=== PATIENT | female | born 1985 | race Caucasian/White ===

== ENCOUNTER 2016-02-16 19:16 | Emergency (ER) | payer MEDICAID, OTHER ==
[~2016-02-16] VITALS: Ht 160 cm; Wt 87.0 kg
[2016-02-16 19:20] VITALS: Ht 160 cm; Wt 87.0 kg
[2016-02-16] MEDS ORDERED: ULT50 PO (19:35)
[2016-02-16] MEDS ORDERED: IBUP-1542 PO (19:35)
--- NOTE | 2016-02-16 19:40 | ERD ---
ER Documentation Chief Complaint Date/Time DATE: 02/16/16 TIME: 19:38 Chief Complaint on/off breast pressure x2-3days,no redness/ discharge HPI 30-year-old female presents here in emergency department for complaints of bilateral breast pain for one month now, worsening last 3 days. Patient is currently on her menstrual period. Patient described the pain as throbbing pain , 6/10 scale, not better or worse with anything. Patient did not take any medications to help with symptoms. Patient denies any redness or swelling. Patient denies any deformity. Patient denies any nipple discharge. Patient denies any trauma on affected area. ROS All systems reviewed and are negative except as per history of present illness. Medications Home Meds Active Scripts Tramadol HCl (Tramadol HCl) 50 Mg Tablet, 50 MG PO Q6 Y for PAIN, #20 TAB Prov:MANAV ULLOA PARACHUTE PANEL JOINER 02/16/16 Ibuprofen* (Motrin*) 600 Mg Tab, 600 MG PO Q6H Y for PAIN AND OR ELEVATED TEMP, #30 TAB Prov:MANAV ULLOA [employer]ACHUTE PANEL JOINER 02/16/16 Allergies Allergies: Coded Allergies: No Known Allergy (Verified , 04/30/14) PMhx/Soc History of Surgery: Yes (c section) Anesthesia Reaction: No Hx Neurological Disorder: No Hx Respiratory Disorders: No Hx Cardiac Disorders: No Hx Psychiatric Problems: No Hx Miscellaneous Medical Probl: No Hx Alcohol Use: No (denies) Hx Substance Use: No (denies) Hx Tobacco Use: No (denies) FmHx Family History: No coronary disease, No diabetes, No other Physical Exam Vitals Vital Signs Date Time Temp Pulse Resp B/P Pulse Ox O2 Delivery O2 Flow Rate FiO2 02/16/16 19:20 99.1 70 18 124/75 100 Physical Exam GENERAL: The patient is well developed and appropriate for usual state of health, in no apparent distress. CHEST: Clear to auscultation bilaterally. There are no rales, wheezes or rhonchi. Tenderness on bilateral breast area, no lumps or nodules noted or palpable. No redness and swelling. No nipple discharge noted. No deformity noted. HEART: Regular rate and rhythm. No murmurs, clicks, rubs or gallops. No S3 or S4. ABDOMEN: Soft, nontender and nondistended. Good bowel sounds. No rebound or guarding. No gross peritonitis. No gross organomegaly or masses. No Anne sign or McBurney point tenderness. BACK: No midline or flank tenderness. EXTREMITIES: Equal pulses bilaterally. There is no peripheral clubbing, cyanosis or edema. No focal swelling or erythema. Full range of motion. Grossly neurovascularly intact. NEURO: Alert and oriented. Cranial nerves 2-12 intact. Motor strength in all 4 extremities with 5/5 strength. Sensation grossly intact. Normal speech and gait. SKIN: There is no apparent rash or petechia. The skin is warm and dry. HEMATOLOGIC AND LYMPHATIC: There is no evidence of excessive bruising or lymphedema. No gross cervical, axillary, or inguinal lymphadenopathy. Procedures/MDM Medical decision making: Patient's breast pain is nonspecific at this time, possible hormonal. Patient is currently on her menstruation. Patient does not have any trauma on affected area. No symptoms of any abscess. No symptoms of any lumps or any deformities at this time. Patient was advised to see breast specialist, medical just specialist for possible ultrasound or mammogram for further evaluation of the breast area. Patient was advised to return to emergency department for symptoms of infection, high fever, redness or swelling , nasal discharge, or any other worsening symptoms. Otherwise, patient is advised to follow with primary care doctor in 2-3 days and see a teacher visually impaired specialist for further evaluation of symptoms. Departure Diagnosis: Primary Impression: Breast pain Condition: Stable Patient Instructions: Breast Self-Exam (BSE) Referrals: [facility] [place] [id number] [id number] OFFICE FAX NICKY RUSHING [address] [place] [place] [id number] [address] [address] [place], [place] [phone] JOHNNY PLASCENCIA [address] [facility], [address] [address] [address]AV[address] [address] [place], [place] [id number] [facility] [address] [place], [place] [id number] [address] [facility] [id number] - STEPHANIE SILVA [address], [facility] [address] [address] RAPHAEL, DANNIELLE [address] [facility]. [address], [facility] [address] [address] ZACARIAS, F[place] [address] [place] [address] Additional Instructions: see breast specialist, outpatient mamogram or trung recommended, return for symptoms of infection MANAV ULLOA NP Feb 16, 2016 19:40
[2016-02-16 19:46] VITALS: BP 112/77; PULSE 75; RESP 20; TEMP 98
== END 2016-02-16 19:46 | disposition home or self-care (01) ==
LOC: FTE 19:16
DX: N64.4 Mastodynia (principal)
CPT/HCPCS: 99283

== ENCOUNTER 2016-07-20 21:28 | Emergency (ER) | payer OTHER ==
[~2016-07-20] VITALS: Ht 157.5 cm; Wt 92.0 kg
[~2016-07-20 21:28] MED LIST: IBUP-1542 PO; TRAM50TA2 PO
[2016-07-20 21:50] VITALS: Ht 157.5 cm; Wt 92.0 kg
[2016-07-21] LABS: URINE BLOOD (Dip) POC Negative (NEGATIVE)
--- NOTE | 2016-07-21 00:05 | ERD ---
ER Documentation Chief Complaint Date/Time DATE: 07/21/16 TIME: 00:04 Chief Complaint pt reports lumps in breast and soreness in ribs and L neck pain HPI 31-year-old female presents here in emergency department for complaints of the breast area, the abdominal area, left flank area noticed it the last 2 days, patient took some [id number] dietary supplement. patient is worried that this may be an effect of this. patient does feel some discomfort on the affected areas, sharp pain for/and scale, not better or worse with anything. patient feels sore. patient denies any fever or chills. patient denies any redness or swelling of the breast, denies any nipple discharge. patient denies any nausea or vomiting. no ROS All systems reviewed and are negative except as per history of present illness. Medications Home Meds Active Scripts Tramadol HCl (Tramadol HCl) 50 Mg Tablet, 50 MG PO Q6 Y for PAIN, #20 TAB Prov:MANAV ULLOA PANELBOARD ASSEMBLER 02/16/16 Ibuprofen* (Motrin*) 600 Mg Tab, 600 MG PO Q6H Y for PAIN AND OR ELEVATED TEMP, #30 TAB Prov:MANAV ULLOA PANELBOARD ASSEMBLER 02/16/16 Allergies Allergies: Coded Allergies: No Known Allergy (Verified , 07/20/16) PMhx/Soc History of Surgery: Yes (c- sec x4) Anesthesia Reaction: No Hx Neurological Disorder: No Hx Respiratory Disorders: No Hx Cardiac Disorders: No Hx Psychiatric Problems: Yes (anxiety) Hx Miscellaneous Medical Probl: No Hx Alcohol Use: No Hx Substance Use: No Hx Tobacco Use: No FmHx Family History: No coronary disease, No diabetes, No other Physical Exam Vitals Vital Signs Date Time Temp Pulse Resp B/P Pulse Ox O2 Delivery O2 Flow Rate FiO2 07/20/16 21:50 99.6 92 18 153/70 99 Physical Exam GENERAL: The patient is well developed and appropriate for usual state of health, in no apparent distress. CHEST: Clear to auscultation bilaterally. There are no rales, wheezes or rhonchi. HEART: Regular rate and rhythm. No murmurs, clicks, rubs or gallops. No S3 or S4. ABDOMEN: Soft, nontender and nondistended. Good bowel sounds. No rebound or guarding. No gross peritonitis. No gross organomegaly or masses. No Anne sign or McBurney point tenderness. BACK: No midline or flank tenderness. EXTREMITIES: Equal pulses bilaterally. There is no peripheral clubbing, cyanosis or edema. No focal swelling or erythema. Full range of motion. Grossly neurovascularly intact. NEURO: Alert and oriented. Cranial nerves 2-12 intact. Motor strength in all 4 extremities with 5/5 strength. Sensation grossly intact. Normal speech and gait. SKIN: Multiple subcutaneous nodule palpable all over the abdomen area bilateral breast area, left neck area, no redness, no erythema, no induration noted. There is no apparent ecchymosis or petechia. The skin is warm and dry. HEMATOLOGIC AND LYMPHATIC: There is no evidence of excessive bruising or lymphedema. No gross cervical, axillary, or inguinal lymphadenopathy. Result Diagram: 07/21/16 0005 07/21/16 0005 Results 24 hrs Laboratory Tests Test 07/20/16 23:50 07/21/16 00:04 07/21/16 00:05 Urine Color LT. YELLOW Urine Clarity CLEAR Urine pH 7.0 Urine Specific [place] 1.015 Urine Ketones NEGATIVE Urine Nitrite NEGATIVE Urine Bilirubin NEGATIVE Urine Urobilinogen 0.2 E.U./dL Urine Leukocyte Esterase TRACE Urine Microscopic RBC 0-2/HPF Urine Microscopic WBC 2-5/HPF Urine Squamous Epithelial Cells FEW Urine Hemoglobin NEGATIVE Urine Glucose NEGATIVE% Urine Total Protein NEGATIVE Bedside Urine pH (LAB) 7.0 Bedside Urine Protein (LAB) Negative Bedside Urine Glucose (UA) Negative Bedside Urine Ketones (LAB) Negative Bedside Urine Blood Negative Bedside Urine Nitrite (LAB) Negative Bedside Urine Leukocyte Esterase (L Trace White Blood Count 8.110^3/ul Red Blood Count 4.0410^6/ul Hemoglobin 12.7g/dl Hematocrit 37.9% Mean Corpuscular Volume 93.8fl Mean Corpuscular Hemoglobin 31.4pg Mean Corpuscular Hemoglobin Concent 33.5g/dl Red Cell Distribution Width 12.6% Platelet Count 28616^3/UL Mean Platelet Volume 11.1fl Neutrophils % 57.2% Lymphocytes % 31.0% Monocytes % 8.6% Eosinophils % 2.1% Basophils % 0.7% Nucleated Red Blood Cells % 0.0/100WBC Neutrophils # 4.610^3/ul Lymphocytes # 2.510^3/ul Monocytes # 0.710^3/ul Eosinophils # 0.210^3/ul Basophils # 0.110^3/ul Nucleated Red Blood Cells # 0.010^3/ul Sodium Level 142mmol/L Potassium Level 3.9mmol/L Chloride Level 106mmol/L Carbon Dioxide Level 27mmol/L Anion Gap 13 Blood Urea Nitrogen 15mg/dl Creatinine 0.80mg/dl Glucose Level 97mg/dl Calcium Level 9.9mg/dl Total Bilirubin 0.0mg/dl Direct Bilirubin 0.00mg/dl Indirect Bilirubin 0.0mg/dl Aspartate Amino Transf (AST/SGOT) 33IU/L Alanine Aminotransferase (ALT/SGPT) 46IU/L Alkaline Phosphatase 76IU/L Total Protein 7.5g/dl Albumin 4.6g/dl Globulin 2.90g/dl Albumin/Globulin Ratio 1.58 Lipase 137U/L PROCEDURE: CT ABDOMEN/PELVIS WITHOUT CONTRAST CLINICAL INDICATION: 31-year-old female with abdominal pain. TECHNIQUE: The study was performed utilizing a [employer] 64-slice CT scanner. Direct axial sections were obtained through the abdomen and pelvis without the use of intravenous contrast material. Sagittal and coronal reformations were obtained. One or more of the following dose reduction techniques were utilized: automated exposure control, adjustment of the mA and/ or kV according to patient's size or use of iterative reconstruction technique. The images were reviewed on a PACS workstation. CTD/vol = 17.5 mGy; Total Exam DLP = 999.2 mGy-cm. COMPARISON: CTA chest December 30, 2012. FINDINGS: The lung bases are unremarkable. There is no evidence for significant pleural effusion. The liver has a normal size and contour without focal areas of abnormal density. No intrahepatic nor extrahepatic biliary ductal dilatation is seen. The gallbladder demonstrates no wall thickening nor pericholecystic fluid. No biliary stones are evident. The pancreas is without areas of abnormal attenuation. The spleen is identified and has a normal size without abnormal density. The adrenal glands are unremarkable. The kidneys are without abnormal density. No hydroureteronephrosis nor nephroureterolithiasis is evident. The urinary bladder contains urine. There is prominent retained stool within the ascending and transverse colon without obstruction. The appendix is difficult to visualize but without evidence for abnormal thickening or periappendiceal inflammatory changes. The uterus is unremarkable. Phleboliths are seen within the pelvis. There is minimal pelvic free fluid. The aortoiliac vessels are without aneurysmal dilatation. The osseous structures are intact. IMPRESSION: 1. No CT evidence for obstructive uropathy or renal calculi. 2. Retained stool without obstruction. 3. Minimal pelvic free fluid. .Stu Luong MD, Date Time Electronically viewed and signed by .Stu Luong MD, on 07/21/2016 01:37 .M/ CC: MANAV ULLOA PANELBOARD ASSEMBLER Procedures/MDM Medical Decision Making: Patient abdominal pain mostly is consistent with constipation. Patient has multiple lumps in the body consistent with lipoma. Patient was advised to see order processing specialist for possible biopsy of this nodules. There is low suspicion for abdominal emergencies at this time. Patients abdominal exam is normal at this time. Patients radiology exam does not show any abdominal emergencies at this time. There is low suspicion for appendicitis, cholecystitis, abdominal aortic aneurysms or peritonitis at this time. There is low suspicion for sepsis. Patient appears well and is hemodynamically stable. Disposition: Home. Condition: Stable Prescription Tylenol, ibuprofen, Colace, MiraLAX Instructions: Patient is advised to take medications as prescribed. Patient is advised to rest, increase fluid intake and do brat diet for next 1-2 days and progress as tolerated. Patient is advised that if symptoms are worse, severe abdominal pain, uncontrolled vomiting, high fever, severe flank pain, worst signs and symptoms, to return to the emergency department immediately. Otherwise, patient can follow up with primary care doctor in 5-7 days. Departure Diagnosis: Primary Impression: Abdominal pain Abdominal location: generalized Qualified Code: R10.84 - Generalized abdominal pain Additional Impressions: Constipation Constipation type: unspecified constipation type Qualified Code: K59.00 - Constipation, unspecified constipation type Lipoma Lipoma location: unspecified Qualified Code: D17.9 - Lipoma, unspecified site Condition: Stable Patient Instructions: Abdominal Pain, Constipation (Adult), Lipoma Additional Instructions: Patient is advised to take medications as prescribed. Patient is advised to rest , increase fluid intake and do brat diet for next 1-2 days and progress as tolerated. Patient is advised that if symptoms are worse, severe abdominal pain , uncontrolled vomiting, high fever, severe flank pain, worst signs and symptoms , to return to the emergency department immediately. Otherwise, patient can follow up with primary care doctor in 5-7 days. MANAV ULLOA NP Jul 21, 2016 00:05
[2016-07-21 00:22] LABS: ADD SCAN DIFF NO
[2016-07-21 00:24] LABS: BASOPHIL # 0.1 10^3/ul (0.0-0.1); BASOPHILS % 0.7 % (0.0-2.0); EOSINOPHILS # 0.2 10^3/ul (0.0-0.5); EOSINOPHILS % 2.1 % (0.0-7.0); HEMATOCRIT 37.9 % (37.0-47.0); HEMOGLOBIN 12.7 g/dl (12.0-16.0); LYMPHOCYTES # 2.5 10^3/ul (0.8-2.9); MEAN CORPUSCULAR HEMOGLOBIN 31.4 pg (29.0-33.0); MEAN CORPUSCULAR HGB CONC 33.5 g/dl (32.0-37.0); MEAN CORPUSCULAR VOLUME 93.8 fl (82.0-101.0); MEAN PLATELET VOLUME 11.1 fl (7.4-10.4); MONOCYTE # 0.7 10^3/ul (0.3-0.9); MONOCYTES % 8.6 % (0.0-11.0); NEUTROPHIL # 4.6 10^3/ul (1.6-7.5); NEUTROPHILS % 57.2 % (39.0-77.0); PLATELET COUNT 239 10^3/UL (140-415); RED BLOOD COUNT 4.04 10^6/ul (4.20-5.40); RED CELL DISTRIBUTION WIDTH 12.6 % (11.5-14.5); WHITE BLOOD COUNT 8.1 10^3/ul (4.8-10.8)
[2016-07-21 00:40] LABS: ADD UMIC YES; URINE BILIRUBIN (Dip) NEGATIVE (NEGATIVE); URINE BLOOD (Dip) NEGATIVE (NEGATIVE); URINE COLOR LT. YELLOW (YELLOW); URINE GLUCOSE (Dip) NEGATIVE (NEGATIVE); URINE KETONES (Dip) NEGATIVE (NEGATIVE); URINE LEUKOCYTE ESTERASE (Dip) TRACE (NEGATIVE); URINE NITRITE (Dip) NEGATIVE (NEGATIVE); URINE TOTAL PROTEIN (Dip) NEGATIVE (NEGATIVE); URINE UROBILINOGEN (Dip) 0.2 E.U./dL (0.1-1.0)
[2016-07-21 00:43] LABS: ALBUMIN 4.6 g/dl (3.3-4.9); ALBUMIN/GLOBULIN RATIO 1.58; CALCIUM 9.9 mg/dl (8.4-10.2); CREATININE 0.8 mg/dl (0.44-1.00); POTASSIUM 3.9 mmol/L (3.5-5.1); TOTAL PROTEIN 7.5 g/dl (6.1-8.1)
[2016-07-21 00:48] LABS: SQUAMOUS EPITHELIAL CELL,UR FEW; URINE RBCS 0-2 /HPF (0)
--- NOTE | 2016-07-21 01:38 | RADRPT ---
PROCEDURE: CT ABDOMEN/PELVIS WITHOUT CONTRAST CLINICAL INDICATION: 31-year-old female with abdominal pain. TECHNIQUE: The study was performed utilizing a [employer] VCT 64-slice CT scanner. Direct axia l sections were obtained through the abdomen and pelvis without the use of intravenous contrast mate rial. Sagittal and coronal reformations were obtained. One or more of the following dose reduction t echniques were utilized: automated exposure control, adjustment of the mA and/or kV according to pat ient's size or use of iterative reconstruction technique. The images were reviewed on a PACS workst atRiffRaff. CTD/vol = 17.5 mGy; Total Exam DLP = 999.2 mGy-cm. COMPARISON: CTA chest December 30, 2012. FINDINGS: The lung bases are unremarkable. There is no evidence for significant pleural effusion. The liver has a normal size and contour without focal areas of abnormal density. No intrahepatic nor extrahepa tic biliary ductal dilatation is seen. The gallbladder demonstrates no wall thickening nor perichole cystic fluid. No biliary stones are evident. The pancreas is without areas of abnormal attenuation. The spleen is identified and has a normal size without abnormal density. The adrenal glands are unr emarkable. The kidneys are without abnormal density. No hydroureteronephrosis nor nephroureterolithi asis is evident. The urinary bladder contains urine. There is prominent retained stool within the as cending and transverse colon without obstruction. The appendix is difficult to visualize but withou t evidence for abnormal thickening or periappendiceal inflammatory changes. The uterus is unremarka ble. Phleboliths are seen within the pelvis. There is minimal pelvic free fluid. The aortoiliac vessels are without aneurysmal dilatation. The osseous structures are intact. IMPRESSION: 1. No CT evidence for obstructive uropathy or renal calculi. 2. Retained stool without obstruction. 3. Minimal pelvic free fluid. .Stu Luong MD, Date Time Electronically viewed and signed by .Stu Luong MD, MD on 07/21/2016 01:37 .[place]
[2016-07-21] MEDS ORDERED: DOCU-144 PO (01:58)
[2016-07-21] MEDS ORDERED: TRAM50TA2 PO (01:58)
[2016-07-21] MEDS ORDERED: IBUP-1542 PO (01:58)
[2016-07-21] MEDS ORDERED: POLY17PO6 PO (01:58)
== END 2016-07-21 02:36 | disposition home or self-care (01) ==
LOC: FTE 21:28
DX: R10.84 Generalized abdominal pain (principal); K59.00 Constipation, unspecified; D17.9 Benign lipomatous neoplasm, unspecified
CPT/HCPCS: 36415; 74176; 80053; 81001; 81003; 83690; 85025

== ENCOUNTER 2017-01-21 16:17 | Emergency (ER) | payer OTHER ==
[~2017-01-21] VITALS: Ht 157.5 cm; Wt 90.6 kg
[~2017-01-21 16:17] MED LIST changes: +BEN25 PO; +DOCU-144 PO; +POLY17PO6 PO; +PRED20TA PO
[2017-01-21 16:20] VITALS: Ht 157.5 cm; Wt 90.6 kg
[2017-01-21] MEDS ORDERED: MECLIZINE 12.5 MG TAB PO ONE (17:00)
--- NOTE | 2017-01-21 17:01 | ERD ---
ER Documentation Chief Complaint Chief Complaint c/o dizziness x2 weeks. No active bleeding. Hx: Anemia HPI This is a 31-year-old female who presents the emergency department today complaining of intermittent dizziness for the past 2-3 weeks. States that 4 years ago she was told she had anemia but does not take any medications currently. Denies any heavy vaginal bleeding. States she has had some nausea but no vomiting. States that the dizziness comes and goes and sometimes it is worse when she goes from laying down to sitting up. She occasionally gets a headache. Denies any recent illnesses. Denies any blurred vision , fevers or chills, dysuria. ROS All systems reviewed and are negative except as per history of present illness. Medications Home Meds Active Scripts Prednisone* (Prednisone*) 20 Mg Tab, 40 MG PO DAILY for 4 Days, TAB Prov:TERELL BUENO PA-C 10/02/16 Diphenhydramine Hcl* (Benadryl*) 25 Mg Cap, 25 MG PO Q6, #30 CAP Prov:TERELL BUENO PA-C 10/02/16 Tramadol HCl (Tramadol HCl) 50 Mg Tablet, 50 MG PO Q6 for SEVERE PAIN LEVEL 7-10 , #20 TAB Prov:MANAV ULLOA NP 07/21/16 Ibuprofen* (Motrin*) 600 Mg Tab, 600 MG PO Q6H Y for PAIN AND OR ELEVATED TEMP, #30 TAB Prov:MANAV ULLOA NP 07/21/16 Docusate Sodium* (Colace*) 100 Mg Capsule, 100 MG PO TID, #30 CAP Prov:MANAV ULLOA NP 07/21/16 Polyethylene Glycol* (Miralax*) 17 Gm Powd.pack, 17 GM PO DAILY, #7 Prov:AMNAV ULLOA NP 07/21/16 Tramadol HCl (Tramadol HCl) 50 Mg Tablet, 50 MG PO Q6 Y for PAIN, #20 TAB Prov:MANAV ULLOA NP 02/16/16 Ibuprofen* (Motrin*) 600 Mg Tab, 600 MG PO Q6H Y for PAIN AND OR ELEVATED TEMP, #30 TAB Prov:MANAV ULLOA NP 02/16/16 Allergies Allergies: Coded Allergies: No Known Allergy (Verified , 07/20/16) PMhx/Soc History of Surgery: Yes (c- sec x4) Anesthesia Reaction: No Hx Neurological Disorder: No Hx Respiratory Disorders: No Hx Cardiac Disorders: No Hx Psychiatric Problems: Yes (anxiety) Hx Miscellaneous Medical Probl: No Hx Alcohol Use: No Hx Substance Use: No Hx Tobacco Use: No Smoking Status: Never smoker Physical Exam Vitals Vital Signs Date Time Temp Pulse Resp B/P Pulse Ox O2 Delivery O2 Flow Rate FiO2 01/21/17 16:20 98.7 69 20 129/84 100 Physical Exam Const: talkative, NAD Head: Atraumatic Eyes: Normal Conjunctiva. PERRLA. EOM intact. No nystagmus. ENT: TMs normal. Nose no drainage. Throat no erythema no exudate Neck: Full range of motion..~ No meningismus. Resp: Clear to auscultation bilaterally Cardio: Regular rate and rhythm, no murmurs Abd: Soft, non tender, non distended. Normal bowel sounds Skin: No petechiae or rashes Back: No midline or flank tenderness Ext: No cyanosis, or edema Neur: Awake and alert nerves II through XII intact. No gait ataxia. Psych: Normal Mood and Affect Result Diagram: 01/21/17 1650 01/21/17 1650 Results 24 hrs Laboratory Tests Test 01/21/17 16:50 01/21/17 17:00 White Blood Count 6.910^3/ul Red Blood Count 4.1210^6/ul Hemoglobin 12.8g/dl Hematocrit 38.2% Mean Corpuscular Volume 92.7fl Mean Corpuscular Hemoglobin 31.1pg Mean Corpuscular Hemoglobin Concent 33.5g/dl Red Cell Distribution Width 12.4% Platelet Count 70419^3/UL Mean Platelet Volume 11.0fl Neutrophils % 57.4% Lymphocytes % 32.8% Monocytes % 6.7% Eosinophils % 2.2% Basophils % 0.6% Nucleated Red Blood Cells % 0.0/100WBC Neutrophils # 4.010^3/ul Lymphocytes # 2.310^3/ul Monocytes # 0.510^3/ul Eosinophils # 0.210^3/ul Basophils # 0.010^3/ul Nucleated Red Blood Cells # 0.010^3/ul Sodium Level 138mmol/L Potassium Level 4.2mmol/L Chloride Level 102mmol/L Carbon Dioxide Level 25mmol/L Anion Gap 15 Blood Urea Nitrogen 19mg/dl Creatinine 0.73mg/dl Glucose Level 89mg/dl Calcium Level 9.7mg/dl Total Bilirubin 0.1mg/dl Direct Bilirubin 0.00mg/dl Indirect Bilirubin 0.1mg/dl Aspartate Amino Transf (AST/SGOT) 41IU/L Alanine Aminotransferase (ALT/SGPT) 34IU/L Alkaline Phosphatase 92IU/L Total Protein 7.5g/dl Albumin 4.2g/dl Globulin 3.30g/dl Albumin/Globulin Ratio 1.27 Urine Color STRAW Urine Clarity CLEAR Urine pH 6.0 Urine Specific [place] 1.010 Urine Ketones TRACEmg/dL Urine Nitrite NEGATIVEmg/dL Urine Bilirubin NEGATIVEmg/dL Urine Urobilinogen NEGATIVEmg/dL Urine Leukocyte Esterase NEGATIVELeu/ul Urine Hemoglobin NEGATIVEmg/dL Urine Glucose NEGATIVEmg/dL Urine Total Protein NEGATIVEmg/dl Current Medications Medications (Trade) Dose Ordered Sig/Harshad Route PRN Reason Start Time Stop Time Status Last Admin Dose Admin Meclizine HCl (Antivert) 25 mg ONCE ONCE PO 01/21/17 17:00 01/21/17 17:01 DC 01/21/17 17:10 Procedures/MDM This is a 31-year-old female who presents to the emergency department today complaining of intermittent dizziness for the past 3 weeks. Patient has no focal neurologic deficits and no gait ataxia and I do not feel this requires a head CT scan at this time. Low suspicion for acute hemorrhage, mass, abscess, meningitis however given duration of symptoms I did offer to 1 for the patient and she has declined at this time. She does have a history of anemia in the past and therefore did obtain laboratory workup as well as an EKG and UA EKG read and interpreted by Dr. Ibarra: Rate [address] elevation. No QT prolongation. Sinus bradycardia Laboratory workup no elevated white blood cell count. She is not anemic. Platelets are within normal limits. Electrolytes are within normal limits. Glucose is within normal limits. Liver enzymes are within normal limits. UA is negative for infection Urine test is negative Patient was given meclizine here in the emergency department. She did report that sometimes the dizziness is worse when she goes from down to sitting up however she has no pendular nystagmus on physical exam when I examined her from the supine to sitting position Patient has dizziness of uncertain etiology. Patient is afebrile and otherwise well-appearing. Low suspicion for sepsis or severe acute bacterial infection, cardiac cause as reason for dizziness. Given a prescription for meclizine for home she was instructed to follow-up with primary care doctor for further evaluation and management. At this time the patient is stable for discharge and outpatient management. Patient should follow up with their PCP in the next 1-2 days. They may return to the emergency department sooner for any persistent or worsening of symptoms. Patient understood and agreed with the plan. ARSLAN MASTERS PA-C Jan 21, 2017 17:01
[2017-01-21 17:10] LABS: BASOPHILS % 0.6 % (0.0-2.0); EOSINOPHILS # 0.2 10^3/ul (0.0-0.5); EOSINOPHILS % 2.2 % (0.0-7.0); HEMATOCRIT 38.2 % (37.0-47.0); HEMOGLOBIN 12.8 g/dl (12.0-16.0); LYMPHOCYTES # 2.3 10^3/ul (0.8-2.9); LYMPHOCYTES % 32.8 % (15.0-51.0); MEAN CORPUSCULAR HEMOGLOBIN 31.1 pg (29.0-33.0); MEAN CORPUSCULAR HGB CONC 33.5 g/dl (32.0-37.0); MEAN CORPUSCULAR VOLUME 92.7 fl (82.0-101.0); MONOCYTE # 0.5 10^3/ul (0.3-0.9); MONOCYTES % 6.7 % (0.0-11.0); NEUTROPHILS % 57.4 % (39.0-77.0); PLATELET COUNT 241 10^3/UL (140-415); RED BLOOD COUNT 4.12 10^6/ul (4.20-5.40); RED CELL DISTRIBUTION WIDTH 12.4 % (11.5-14.5); WHITE BLOOD COUNT 6.9 10^3/ul (4.8-10.8)
[2017-01-21 17:30] LABS: ALBUMIN 4.2 g/dl (3.3-4.9); ALBUMIN/GLOBULIN RATIO 1.27; BILIRUBIN,INDIRECT 0.1 mg/dl (0-1.1); BILIRUBIN,TOTAL 0.1 mg/dl (0.2-1.3); CALCIUM 9.7 mg/dl (8.4-10.2); CREATININE 0.73 mg/dl (0.44-1.00); POTASSIUM 4.2 mmol/L (3.5-5.1); TOTAL PROTEIN 7.5 g/dl (6.1-8.1)
[2017-01-21 18:07] LABS: ADD UMIC NO; UR ASCORBIC ACID NEGATIVE (NEGATIVE); UR BILIRUBIN (Dip) NEGATIVE (NEGATIVE); UR BLOOD (Dip) NEGATIVE (NEGATIVE); UR CLARITY CLEAR (CLEAR); UR COLOR STRAW (YELLOW); UR GLUCOSE (Dip) NEGATIVE (NEGATIVE); UR KETONES (Dip) TRACE mg/dL (NEGATIVE); UR LEUKOCYTE ESTERASE (Dip) NEGATIVE Leu/ul (NEGATIVE); UR NITRITE (Dip) NEGATIVE (NEGATIVE); UR TOTAL PROTEIN (Dip) NEGATIVE (NEGATIVE); UR UROBILINOGEN (Dip) NEGATIVE (NEGATIVE)
[2017-01-21] MEDS ORDERED: MECL12.574 PO (18:27)
[2017-01-21 18:54] VITALS: BP 117/70; PULSE 59; RESP 20; TEMP 98.1
== END 2017-01-21 18:55 | disposition home or self-care (01) ==
LOC: FTE 16:17
DX: R42 Dizziness and giddiness (principal)
CPT/HCPCS: 80053; 81003; 85025; 93005; Z7502; Z7610

== ENCOUNTER 2017-02-05 06:53 | Emergency (ER) | END 2017-02-05 08:51 | disposition home or self-care (01) ==

== ENCOUNTER 2017-02-22 13:08 | Emergency (ER) | END 2017-02-22 13:35 | disposition home or self-care (01) ==

== ENCOUNTER 2017-04-26 18:46 | Emergency (ER) | END 2017-04-26 23:16 | disposition home or self-care (01) ==

== ENCOUNTER 2017-12-22 09:35 | Emergency (ER) | END 2017-12-22 10:22 | disposition home or self-care (01) ==

== ENCOUNTER 2018-01-17 11:46 | Emergency (ER) | END 2018-01-17 15:13 | disposition home or self-care (01) ==

== ENCOUNTER 2018-04-22 08:56 | Emergency (ER) | payer OTHER ==
[~2018-04-22] VITALS: Wt 89.7 kg
[~2018-04-22 08:56] MED LIST changes: +ACET500C5 PO; +AMOX500C2 PO; +EPIN0.3P4 INJ; +FAMO-96 PO; +LORA-441 PO; +LORA10CA PO; +MECL12.574 PO
[2018-04-22 08:59] VITALS: BP 146/67; PULSE 83; RESP 17
[2018-04-22] MEDS ORDERED: AZIT250T PO (09:24)
[2018-04-22] MEDS ORDERED: BENZ-6 PO (09:24)
[2018-04-22] MEDS ORDERED: PROM6.2515 PO (09:24)
[2018-04-22] MEDS ORDERED: PSEU-79 PO (09:24)
--- NOTE | 2018-04-22 09:38 | ERD ---
ER Documentation Chief Complaint Chief Complaint COUGH, CONGESTION, EAR PAIN X1 WEEK HPI 32-year-old female presenting with cough and congestion with some ear pain times 1 week. Patient has had a sore throat worsening over the last 3 days. She took Advil last night but no medication today. Has tactile fevers. Denies other medical problems. NKDA. Surgical history . Social history denies ROS All systems reviewed and are negative except as per history of present illness. Medications Home Meds Active Scripts Promethazine Hcl* (Promethazine Hcl* Syrup) 6.25 Mg/5 Ml Syrup, 6.25 MG PO Q6H PRN for COUGH, #100 ML Prov:JAVIER BAIN PA-C 04/22/18 Benzonatate* (Tessalon Perle*) 100 Mg Capsule, 100 MG PO Q8H PRN for COUGH, #30 CAP Prov:JAVIER BAIN PA-C 04/22/18 Azithromycin* (Zithromax*) 250 Mg Tablet, 250 MG PO .KatPACK DIRECTED, #6 TAB TAKE 500 MG (2 TABS) THE FIRST DAY THEN 250 MG (1 TAB) DAYS 2-5 Prov:JAVIER BAIN PA-C 04/22/18 Pseudoephedrine Hcl* (Suphedrin*) 30 Mg Tablet, 30 MG PO Q6 PRN for CONGESTION, #30 TAB Prov:JAVIER BAIN PA-C 04/22/18 Ibuprofen* (Motrin*) 600 Mg Tab, 600 MG PO Q6H PRN for PAIN AND OR ELEVATED TEMP, #30 TAB Prov:ETELVINA CARROEN MD 12/22/17 Lorazepam* (Ativan*) 0.5 Mg Tablet, 0.5 MG PO BID PRN for AGITATION/ANXIETY, #7 TAB Prov:LAVELL BREAUX PA-C 04/26/17 Amoxicillin* (Amoxicillin*) 500 Mg Cap, 500 MG PO BID for 10 Days, CAP Prov:ASHLEY LAMBERTC 02/22/17 Acetaminophen* (Tylophen*) 500 Mg Capsule, 1 CAP PO Q6H PRN for PAIN AND OR ELEVATED TEMP, #20 CAP Prov:ASHLEY LAMBERT PA-C 02/22/17 Ibuprofen* (Motrin*) 600 Mg Tab, 600 MG PO Q6, #30 TAB Prov:ASHLEY LAMBERT PA-C 02/22/17 Epinephrine (Epipen 2-Adalberto) 0.3 Mg/0.3 Ml Pen.injctr, 1 EA INJ ONCE PRN for ALLERGIC REACTION, #1 EA Prov:KOJO KOTHARI 02/05/17 Diphenhydramine Hcl* (Benadryl*) 25 Mg Cap, 25 MG PO Q8 PRN for ITCHING/RASH, #30 TAB Prov:KOJO KOTHARI 02/05/17 Famotidine* (Pepcid*) 20 Mg Tablet, 20 MG PO DAILY for 14 Days, TAB Prov:KOJO KOTHARI 02/05/17 Loratadine* (Claritin*) 10 Mg Capsule, 10 MG PO DAILY for 30 Days, #30 CAP Prov:KOJO KOTHARI 02/05/17 Prednisone* (Prednisone*) 20 Mg Tab, 40 MG PO DAILY for 5 Days, TAB Prov:KOJO KOTHARI 02/05/17 Meclizine Hcl* (Antivert*) 12.5 Mg Tab, 25 MG PO Q6H PRN for DIZZINESS, #20 TAB Prov:ARSLAN MASTERS PA-C 01/21/17 Prednisone* (Prednisone*) 20 Mg Tab, 40 MG PO DAILY for 4 Days, TAB Prov:TERELL BUENO PA-C 10/02/16 Diphenhydramine Hcl* (Benadryl*) 25 Mg Cap, 25 MG PO Q6, #30 CAP Prov:TERELL BUENO PA-C 10/02/16 Tramadol HCl (Tramadol HCl) 50 Mg Tablet, 50 MG PO Q6 for SEVERE PAIN LEVEL 7- 10, #20 TAB Prov:MANAV ULLOA NP 07/21/16 Ibuprofen* (Motrin*) 600 Mg Tab, 600 MG PO Q6H PRN for PAIN AND OR ELEVATED TEMP, #30 TAB Prov:MANAV ULLOA NP 07/21/16 Docusate Sodium* (Colace*) 100 Mg Capsule, 100 MG PO TID, #30 CAP Prov:MANAV ULLOA NP 07/21/16 Polyethylene Glycol* (Miralax*) 17 Gm Powd.pack, 17 GM PO DAILY, #7 Prov:LAILAMANAV SHELF STOCKER 07/21/16 Tramadol HCl (Tramadol HCl) 50 Mg Tablet, 50 MG PO Q6 PRN for PAIN, #20 TAB Prov:LAILAMANAV CY Anthony SHELF STOCKER 02/16/16 Ibuprofen* (Motrin*) 600 Mg Tab, 600 MG PO Q6H PRN for PAIN AND OR ELEVATED TEMP, #30 TAB Prov:EDSONMANAV VALVERDE SHELF STOCKER 02/16/16 Allergies Allergies: Coded Allergies: No Known Allergy (Verified , 07/20/16) PMhx/Soc History of Surgery: Yes (c section x4) Anesthesia Reaction: No Hx Neurological Disorder: No Hx Respiratory Disorders: No Hx Cardiac Disorders: No Hx Psychiatric Problems: No Hx Miscellaneous Medical Probl: No Hx Alcohol Use: No Hx Substance Use: No Hx Tobacco Use: No Smoking Status: Never smoker FmHx Family History: No diabetes, No coronary disease, No other Physical Exam Vitals Vital Signs Date Temp Pulse Resp B/P (MAP) Pulse Ox O2 O2 Flow FiO2 Time Delivery Rate 04/22/18 99.2 83 17 146/67 98 08:59 (93) Physical Exam GENERAL: The patient is well-appearing, well-nourished, in no acute distress HEENT: Atraumatic. Conjunctivae are pink. Pupils equal, round, and reactive to light. There is no scleral icterus. Tympanic membranes clear bilaterally. Oropharynx clear. NECK: C-spine is soft and supple. There is no meningismus. There is no cervical lymphadenopathy. CHEST: Clear to auscultation bilaterally. There are no rales, wheezes or rhonchi. HEART: Regular rate and rhythm. No murmurs, clicks, rubs or gallops. Procedures/MDM MDM: 32-year-old female presenting with URI symptoms. Patient symptoms are likely associated with viral syndrome. Patient is discharged with supportive medications. I did write for antibiotics but recommend the patient weights 1 week before taking medication. Patient is told to only take medication if symptoms persist. Patient is told symptoms change or worsen to return immediately to the ER. All questions answered at discharge Departure Diagnosis: Primary Impression: URI (upper respiratory infection) Condition: Stable Patient Instructions: Uri, Viral, No Abx (Adult) Referrals: [facility] YOU HAVE RECEIVED A MEDICAL SCREENING EXAM AND THE RESULTS INDICATE THAT YOU DO NOT HAVE A CONDITION THAT REQUIRES URGENT TREATMENT IN THE EMERGENCY DEPARTMENT. FURTHER EVALUATION AND TREATMENT OF YOUR CONDITION CAN WAIT UNTIL YOU ARE SEEN IN YOUR DOCTORS OFFICE WITHIN THE NEXT 1-2 DAYS. IT IS YOUR RESPONSIBILITY TO MAKE AN APPOINTMENT FOR FOLOW-UP CARE. IF YOU HAVE A PRIMARY DOCTOR --you should call your primary doctor and schedule an appointment IF YOU DO NOT HAVE A PRIMARY DOCTOR YOU CAN CALL OUR PHYSICIAN REFERRAL HOTLINE AT IF YOU CAN NOT AFFORD TO SEE A PHYSICIAN YOU CAN CHOSE FROM THE FOLLOWING [facility] CLINICS [facility] [address] [facility] [address] [facility] [facility] [address] [facility] [address] [facility] [address] [facility]. [facility]. [address] Additional Instructions: FOLLOW UP WITH YOUR PRIMARY CARE PHYSICIAN TOMORROW.Return to this facility if you are not improving as expected. JAVIER BAIN PA-C Apr 22, 2018 09:38
== END 2018-04-22 09:54 | disposition home or self-care (01) ==
LOC: FTE 08:56
DX: J06.9 Acute upper respiratory infection, unspecified (principal)
CPT/HCPCS: 99283

== ENCOUNTER 2018-04-26 21:46 | Emergency (ER) | payer OTHER ==
[~2018-04-26] VITALS: Ht 160 cm; Wt 91.4 kg
[~2018-04-26 21:46] MED LIST changes: +AZIT250T PO; +BENZ-6 PO; +PROM6.2515 PO; +PSEU-79 PO
[2018-04-26 22:09] VITALS: Ht 160 cm; Wt 91.4 kg
[2018-04-27] MEDS ORDERED: KETOROLAC 30 MG INJ IM STA (00:24)
--- NOTE | 2018-04-27 00:26 | ERD ---
ER Documentation Chief Complaint Chief Complaint cough x 1 week, white phlegm x 1 week HPI 32-year-old female, previously healthy, presents the emergency department, complaining of 1 week with upper respiratory symptoms including cough, chest congestion, runny nose and yellowish phlegm. The patient denies fevers, no chills, no shortness of breath. The patient is currently taking azithromycin, Tessalon Perles and promethazine without improvement of the symptoms. ROS All systems reviewed and are negative except as per history of present illness. Medications Home Meds Active Scripts Ibuprofen* (Motrin*) 600 Mg Tab, 600 MG PO Q8, #20 TAB Prov:SANTIAGO FERMIN MD 04/27/18 Inhaler, Assist Devices (Compact Space Chamber) 1 Each Spacer, EACH MC Q2H, #1 Prov:SANTIAGO FERMIN MD 04/27/18 Albuterol Sulfate* (Proair HFA*) 8.5 Gm Hfa.aer.ad, 2 PUFF INH Q4 for cough, #1 INHALER Prov:SANTIAGO FERMIN MD 04/27/18 Amoxicillin* (Amoxicillin*) 500 Mg Cap, 500 MG PO TID for 7 Days, CAP Prov:SANTIAGO FERMIN MD 04/27/18 Promethazine Hcl* (Promethazine Hcl* Syrup) 6.25 Mg/5 Ml Syrup, 6.25 MG PO Q6H PRN for COUGH, #100 ML Prov:JAVIER BAIN PA-C 04/22/18 Benzonatate* (Tessalon Perle*) 100 Mg Capsule, 100 MG PO Q8H PRN for COUGH, #30 CAP Prov:JAVIER BAIN PA-C 04/22/18 Azithromycin* (Zithromax*) 250 Mg Tablet, 250 MG PO .KatPACK DIRECTED, #6 TAB TAKE 500 MG (2 TABS) THE FIRST DAY THEN 250 MG (1 TAB) DAYS 2-5 Prov:JAVIER BAIN PA-C 04/22/18 Pseudoephedrine Hcl* (Suphedrin*) 30 Mg Tablet, 30 MG PO Q6 PRN for CONGESTION, #30 TAB Prov:JAVIER BAIN PA-C 04/22/18 Ibuprofen* (Motrin*) 600 Mg Tab, 600 MG PO Q6H PRN for PAIN AND OR ELEVATED TEMP, #30 TAB Prov:ETELVINA CARREON MD 12/22/17 Lorazepam* (Ativan*) 0.5 Mg Tablet, 0.5 MG PO BID PRN for AGITATION/ANXIETY, #7 TAB Prov:LAVELL BREAUXC 04/26/17 Amoxicillin* (Amoxicillin*) 500 Mg Cap, 500 MG PO BID for 10 Days, CAP Prov:ASHLEY LAMBERTC 02/22/17 Acetaminophen* (Tylophen*) 500 Mg Capsule, 1 CAP PO Q6H PRN for PAIN AND OR ELEVATED TEMP, #20 CAP Prov:ASHLEY LAMBERTC 02/22/17 Ibuprofen* (Motrin*) 600 Mg Tab, 600 MG PO Q6, #30 TAB Prov:ASHLEY LAMBERTC 02/22/17 Epinephrine (Epipen 2-Adalberto) 0.3 Mg/0.3 Ml Pen.injctr, 1 EA INJ ONCE PRN for ALLERGIC REACTION, #1 EA Prov:PASILAAPARNAKOJO Currie 02/05/17 Diphenhydramine Hcl* (Benadryl*) 25 Mg Cap, 25 MG PO Q8 PRN for ITCHING/RASH, #30 TAB Prov:SANIYAPATRICIAJACEY Currie 02/05/17 Famotidine* (Pepcid*) 20 Mg Tablet, 20 MG PO DAILY for 14 Days, TAB Prov:KIMBERLEEILAAPARNAPATRICIAJACEY Currie 02/05/17 Loratadine* (Claritin*) 10 Mg Capsule, 10 MG PO DAILY for 30 Days, #30 CAP Prov:PASILAAPARNAKOJO F 02/05/17 Prednisone* (Prednisone*) 20 Mg Tab, 40 MG PO DAILY for 5 Days, TAB Prov:PASILAAPARNAPATRICIAJACEY F 02/05/17 Meclizine Hcl* (Antivert*) 12.5 Mg Tab, 25 MG PO Q6H PRN for DIZZINESS, #20 TAB Prov:ARSLAN MASTERS PA-C 01/21/17 Prednisone* (Prednisone*) 20 Mg Tab, 40 MG PO DAILY for 4 Days, TAB Prov:TERELL BUENO PA-C 10/02/16 Diphenhydramine Hcl* (Benadryl*) 25 Mg Cap, 25 MG PO Q6, #30 CAP Prov:TERELL BUENO PA-C 10/02/16 Tramadol HCl (Tramadol HCl) 50 Mg Tablet, 50 MG PO Q6 for SEVERE PAIN LEVEL 7- 10, #20 TAB Prov:MANAV ULLOA NP 07/21/16 Ibuprofen* (Motrin*) 600 Mg Tab, 600 MG PO Q6H PRN for PAIN AND OR ELEVATED TEMP, #30 TAB Prov:MANAV ULLOA NP 07/21/16 Docusate Sodium* (Colace*) 100 Mg Capsule, 100 MG PO TID, #30 CAP Prov:MANAV ULLOA NP 07/21/16 Polyethylene Glycol* (Miralax*) 17 Gm Powd.pack, 17 GM PO DAILY, #7 Prov:MANAV ULLOA NP 07/21/16 Tramadol HCl (Tramadol HCl) 50 Mg Tablet, 50 MG PO Q6 PRN for PAIN, #20 TAB Prov:MANAV ULLOA NP 02/16/16 Ibuprofen* (Motrin*) 600 Mg Tab, 600 MG PO Q6H PRN for PAIN AND OR ELEVATED TEMP, #30 TAB Prov:MANAV ULLOA NP 02/16/16 Allergies Allergies: Coded Allergies: No Known Allergy (Verified , 07/20/16) PMhx/Soc History of Surgery: Yes (c section x4) Anesthesia Reaction: No Hx Neurological Disorder: No Hx Respiratory Disorders: No Hx Cardiac Disorders: No Hx Psychiatric Problems: No Hx Miscellaneous Medical Probl: No Hx Alcohol Use: No Hx Substance Use: No Hx Tobacco Use: No Smoking Status: Never smoker FmHx Family History: diabetes; No coronary disease Physical Exam Vitals Vital Signs Date Temp Pulse Resp B/P (MAP) Pulse Ox O2 O2 Flow FiO2 Time Delivery Rate 04/27/18 98.4 66 20 115/74 98 Room Air 02:04 (88) 04/26/18 98.5 86 16 134/65 100 22:09 (88) Physical Exam Patient is in moderate distress due to cough, vital signs stable. EYES: PERRLA, EOMI, injected sclerae EARS: Canals clear, erythematous tympanic membranes THROAT: Erythematous oropharynx. NECK: Supple, No lymphadenopathy. Full ROM without pain or tenderness. HEART: RRR, no rubs, murmurs, clicks or gallops. LUNGS: Bilateral rhonchi to auscultation. ABDOMEN: Soft, non-tender without masses or hepatosplenomegaly. EXTREMITIES: No edema bilaterally. BACK: Full ROM, no deformity, normal back exam NEURO: Cranial nerves grossly intact, no motor or sensory deficit Results 24 hrs Laboratory Tests Test 04/27/18 00:38 04/27/18 00:40 Bedside Urine pH (LAB) 5.5 Bedside Urine Protein (LAB) Negative Bedside Urine Glucose (UA) Negative Bedside Urine Ketones (LAB) Negative Bedside Urine Blood Trace-intact Bedside Urine Nitrite (LAB) Negative Bedside Urine Leukocyte Esterase (L Negative POC Beta HCG, Qualitative NEGATIVE Current Medications Medications Dose Sig/Harshad Start Time Status Last (Trade) Ordered Route PRN Stop Time Admin Dose Reason Admin Ketorolac 30 mg ONCE STAT 04/27/18 DC 04/27/18 Tromethamine IM 00:24 00:47 (Toradol) 04/27/18 00:33 Patient: EFRAÍN RIZVI : 1985 Age: 32 Sex: F MR #: [id number] DOS: 04/27/18 0024 Ordering MD: SANTIAGO FERMIN MD Location: [facility] Room/Bed: PROCEDURE: Single view chest. CLINICAL INDICATION: Cough TECHNIQUE: Single view of the chest was obtained COMPARISON: DR CHEST 12/22/2017; CR CHEST 05/01/2014; CR CHEST 12/29/2012 FINDINGS: There is no airspace consolidation or focal infiltrate. No pleural effusion or pneumothorax. Cardiac silhouette and mediastinal contours are unremarkable. Pulmonary vasculature appears normal. Regional bones are grossly unremarkable. IMPRESSION: No evidence of active cardiopulmonary disease. RPTAT: HJBB Procedures/MDM At the time of discharge, patient with nontoxic appearance, vital signs stable, no respiratory distress. Differential diagnosis include but not limited to: upper vs lower respiratory infection bacterial/viral/fungal. Asthma, COPD, pneumonitis, allergies, GERD. Less likely pulmonary embolism, cardiac related or malignancy, but still is a possibility. Physical examination and clinical presentation consistent most likely with viral infection with early superimposed bacterial infection. During the ED course the patient remained stable, no new complaints. Treatment options and clinical impression discussed with the patient who agrees with management. The patient is stable to be treated outpatient and will be discharged home. Some side effects of prescribed medications (headache, rash, nausea, vomiting, diarrhea, interactions with other medications) were reviewed. The patient needs to follow up with the primary care provider in the next 48h. If symptoms persist, worsen or new symptoms develop, then patient should return to the ED immediately. Disclaimer: Inadvertent spelling and grammatical errors are likely due to EHR/dictation software use and do not reflect on the overall quality of patient care. Also, please note that the electronic time recorded on this note does not necessarily reflect the actual time of the patient encounter. Departure Diagnosis: Primary Impression: Acute bronchitis due to infection Condition: Stable Additional Instructions: Thank you very much for allowing us to participate in your care. Your health and safety is our top priority at [facility]. Call your primary care doctor TOMORROW for an appointment during the next 2-4 days and bring all the information and medications prescribed. Have prescriptions filled and follow precisely the directions on the label. If the symptoms get worse and your provider is unavailable, return to the Emergency Department immediately. SANTIAGO FERMIN MD Apr 27, 2018 00:26
[2018-04-27] MEDS ORDERED: AMOX500C2 PO (01:27)
[2018-04-27] MEDS ORDERED: INHA-3 MC (01:27)
[2018-04-27] MEDS ORDERED: ALBU8.5H8 INH (01:27)
[2018-04-27] MEDS ORDERED: IBUP-1542 PO (01:28)
[2018-04-27 02:04] VITALS: BP 115/74; PULSE 66; RESP 20
== END 2018-04-27 02:06 | disposition home or self-care (01) ==
LOC: FTE 21:46
DX: J20.9 Acute bronchitis, unspecified (principal)
CPT/HCPCS: 71046; 81003; 81025; 96372; J1885; Z7502

== ENCOUNTER 2018-07-15 18:05 | Emergency (ER) | payer OTHER ==
[~2018-07-15] VITALS: Ht 157.5 cm; Wt 92.0 kg
[~2018-07-15 18:05] MED LIST changes: +ALBU8.5H8 INH; +INHA-3 MC
[2018-07-15 18:08] VITALS: BP 132/82; PULSE 64; RESP 18; Ht 157.5 cm; Wt 92.0 kg
[2018-07-15] MEDS ORDERED: PROM6.2515 PO (18:57)
[2018-07-15] MEDS ORDERED: BENZ-6 PO (18:57)
[2018-07-15] MEDS ORDERED: PSEU-79 PO (18:57)
--- NOTE | 2018-07-15 23:08 | ERD ---
ER Documentation Chief Complaint Chief Complaint FEVER/COUGH X 2 WEEKS HPI 33-year-old female presenting with fever and cough x2 weeks. Patient has some congested ears and has no fevers. She is been using Afrin at home and NyQuil. Patient denies any chest pain or shortness of breath. Denies medical problems. NKDA. Surgical history x4 years social history denies ROS All systems reviewed and are negative except as per history of present illness. Medications Home Meds Active Scripts Promethazine Hcl* (Promethazine Hcl* Syrup) 6.25 Mg/5 Ml Syrup, 6.25 MG PO Q6H PRN for COUGH, #100 ML Prov:JAVIER BAIN PA-C 07/15/18 Benzonatate* (Tessalon Perle*) 100 Mg Capsule, 100 MG PO Q8H PRN for COUGH, #30 CAP Prov:JAVIER BAIN PA-C 07/15/18 Pseudoephedrine Hcl* (Suphedrin*) 30 Mg Tablet, 30 MG PO Q6 PRN for CONGESTION, #30 TAB Prov:JAVIER BAIN PA-C 07/15/18 Ibuprofen* (Motrin*) 600 Mg Tab, 600 MG PO Q8, #20 TAB Prov:SANTIAGO FERMIN MD 04/27/18 Inhaler, Assist Devices (Compact Space Chamber) 1 Each Spacer, EACH MC Q2H, #1 Prov:SANTIAGO FERMIN MD 04/27/18 Albuterol Sulfate* (Proair HFA*) 8.5 Gm Hfa.aer.ad, 2 PUFF INH Q4 for cough, #1 INHALER Prov:SANTIAGO FERMIN MD 04/27/18 Amoxicillin* (Amoxicillin*) 500 Mg Cap, 500 MG PO TID for 7 Days, CAP Prov:SANTIAGO FERMIN MD 04/27/18 Promethazine Hcl* (Promethazine Hcl* Syrup) 6.25 Mg/5 Ml Syrup, 6.25 MG PO Q6H PRN for COUGH, #100 ML Prov:JAVIER BAIN PA-C 04/22/18 Benzonatate* (Tessalon Perle*) 100 Mg Capsule, 100 MG PO Q8H PRN for COUGH, #30 CAP Prov:JAVIER BAIN-C 04/22/18 Azithromycin* (Zithromax*) 250 Mg Tablet, 250 MG PO .ANGIE DIRECTED, #6 TAB TAKE 500 MG (2 TABS) THE FIRST DAY THEN 250 MG (1 TAB) DAYS 2-5 Prov:JAVIER BAIN-C 04/22/18 Pseudoephedrine Hcl* (Suphedrin*) 30 Mg Tablet, 30 MG PO Q6 PRN for CONGESTION, #30 TAB Prov:JAVIER BAIN-C 04/22/18 Ibuprofen* (Motrin*) 600 Mg Tab, 600 MG PO Q6H PRN for PAIN AND OR ELEVATED TEMP, #30 TAB Prov:ETELVINA CARREON MD 12/22/17 Lorazepam* (Ativan*) 0.5 Mg Tablet, 0.5 MG PO BID PRN for AGITATION/ANXIETY, #7 TAB Prov:LAVELL BREAUX-C 04/26/17 Amoxicillin* (Amoxicillin*) 500 Mg Cap, 500 MG PO BID for 10 Days, CAP Prov:ASHLEY LAMBERT-C 02/22/17 Acetaminophen* (Tylophen*) 500 Mg Capsule, 1 CAP PO Q6H PRN for PAIN AND OR ELEVATED TEMP, #20 CAP Prov:ASHLEY LAMBERT-C 02/22/17 Ibuprofen* (Motrin*) 600 Mg Tab, 600 MG PO Q6, #30 TAB Prov:ASHLEY LAMBERT-C 02/22/17 Epinephrine (Epipen 2-Adalberto) 0.3 Mg/0.3 Ml Pen.injctr, 1 EA INJ ONCE PRN for ALLERGIC REACTION, #1 EA Prov:PASILAKOJO BRAUN 02/05/17 Diphenhydramine Hcl* (Benadryl*) 25 Mg Cap, 25 MG PO Q8 PRN for ITCHING/RASH, #30 TAB Prov:KOJO KOTHARI 02/05/17 Famotidine* (Pepcid*) 20 Mg Tablet, 20 MG PO DAILY for 14 Days, TAB Prov:KOJO KOTHARI 02/05/17 Loratadine* (Claritin*) 10 Mg Capsule, 10 MG PO DAILY for 30 Days, #30 CAP Prov:KOJO KOTHARI 02/05/17 Prednisone* (Prednisone*) 20 Mg Tab, 40 MG PO DAILY for 5 Days, TAB Prov:KOJO KOTHARI 02/05/17 Meclizine Hcl* (Antivert*) 12.5 Mg Tab, 25 MG PO Q6H PRN for DIZZINESS, #20 TAB Prov:ARSLAN MASTERS PA-C 01/21/17 Prednisone* (Prednisone*) 20 Mg Tab, 40 MG PO DAILY for 4 Days, TAB Prov:TERELL BUENO PA-C 10/02/16 Diphenhydramine Hcl* (Benadryl*) 25 Mg Cap, 25 MG PO Q6, #30 CAP Prov:TERELL BUENO PA-C 10/02/16 Tramadol HCl (Tramadol HCl) 50 Mg Tablet, 50 MG PO Q6 for SEVERE PAIN LEVEL 7- 10, #20 TAB Prov:MANAV ULLOA NP 07/21/16 Ibuprofen* (Motrin*) 600 Mg Tab, 600 MG PO Q6H PRN for PAIN AND OR ELEVATED TEMP, #30 TAB Prov:MANAV ULLOA NP 07/21/16 Docusate Sodium* (Colace*) 100 Mg Capsule, 100 MG PO TID, #30 CAP Prov:MANAV ULLOA NP 07/21/16 Polyethylene Glycol* (Miralax*) 17 Gm Powd.pack, 17 GM PO DAILY, #7 Prov:MANAV ULLOA NP 07/21/16 Tramadol HCl (Tramadol HCl) 50 Mg Tablet, 50 MG PO Q6 PRN for PAIN, #20 TAB Prov:MANAV ULLOA NP 02/16/16 Ibuprofen* (Motrin*) 600 Mg Tab, 600 MG PO Q6H PRN for PAIN AND OR ELEVATED TEMP, #30 TAB Prov:MANAV ULLOA NP 02/16/16 Allergies Allergies: Coded Allergies: No Known Allergy (Verified , 07/20/16) PMhx/Soc Medical and Surgical Hx: pt denies Medical Hx, pt denies Surgical Hx History of Surgery: Yes (c section x4) Anesthesia Reaction: No Hx Neurological Disorder: No Hx Respiratory Disorders: No Hx Cardiac Disorders: No Hx Psychiatric Problems: No Hx Miscellaneous Medical Probl: No Hx Alcohol Use: No Hx Substance Use: No Hx Tobacco Use: No Smoking Status: Never smoker FmHx Family History: No diabetes, No coronary disease, No other Physical Exam Vitals Vital Signs Date Temp Pulse Resp B/P (MAP) Pulse Ox O2 O2 Flow FiO2 Time Delivery Rate 07/15/18 98.7 64 18 132/82 99 18:08 (99) Physical Exam GENERAL: The patient is well-appearing, well-nourished, in no acute distress HEENT: Atraumatic. Conjunctivae are pink. Pupils equal, round, and reactive to light. There is no scleral icterus. Tympanic membranes clear bilaterally. Oropharynx clear. NECK: C-spine is soft and supple. There is no meningismus. There is no cervi mateo lymphadenopathy. CHEST: Clear to auscultation bilaterally. There are no rales, wheezes or rhonchi. HEART: Regular rate and rhythm. No murmurs, clicks, rubs or gallops. Procedures/MDM MDM: 33-year-old female presenting with cough and congestion. Patient's findings are consistent with viral URI. I have low suspicion for pneumonia. I have low suspicion for respiratory distress or hypoxia. I have low suspicion for meningitis or sepsis. Patient is discharged with strict ER precautions and told to follow-up with primary care within 1 to 2 days for close evaluation. She is told symptoms change or worsen to return immediately to the ER. All questions answered at discharge Departure Diagnosis: Primary Impression: Cough Condition: Stable Patient Instructions: Cough, Chronic, Uncertain Cause (Child) Referrals: [facility] YOU HAVE RECEIVED A MEDICAL SCREENING EXAM AND THE RESULTS INDICATE THAT YOU DO NOT HAVE A CONDITION THAT REQUIRES URGENT TREATMENT IN THE EMERGENCY DEPARTMENT. FURTHER EVALUATION AND TREATMENT OF YOUR CONDITION CAN WAIT UNTIL YOU ARE SEEN IN YOUR DOCTORS OFFICE WITHIN THE NEXT 1-2 DAYS. IT IS YOUR RESPONSIBILITY TO MAKE AN APPOINTMENT FOR FOLOW-UP CARE. IF YOU HAVE A PRIMARY DOCTOR --you should call your primary doctor and schedule an appointment IF YOU DO NOT HAVE A PRIMARY DOCTOR YOU CAN CALL OUR PHYSICIAN REFERRAL HOTLINE AT IF YOU CAN NOT AFFORD TO SEE A PHYSICIAN YOU CAN CHOSE FROM THE FOLLOWING [facility] [address] [facility] [address] [facility] [facility] [address] [facility] [address] [facility] [address] [facility] [facility] [address] Additional Instructions: FOLLOW UP WITH YOUR PRIMARY CARE PHYSICIAN TOMORROW.Return to this facility if you are not improving as expected. JAVIER BAIN PA-C Jul 15, 2018 23:08
== END 2018-07-15 19:09 | disposition home or self-care (01) ==
LOC: FTE 18:05
DX: R05 Cough (principal)
CPT/HCPCS: 99283